=== PATIENT | male | born 1995 | race Caucasian/White ===

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

== ENCOUNTER 2019-02-11 17:31 | Outpatient (CLI) | payer SELFPAY | END 2019-02-11 17:32 | disposition critical access hospital (66) | LOC: EMS 17:31 | PROVIDERS: ATTEND Surgery | DX: M25.512 Pain in left shoulder (principal); M25.562 Pain in left knee; M25.572 Pain in left ankle and joints of left foot; R51 Headache; R07.9 Chest pain, unspecified; R11.0 Nausea; M25.552 Pain in left hip; V03.10XA Pedestrian on foot injured in collision with car, pick-up truck or van in traffic accident, initial encounter; Y93.C9 Activity, other involving computer technology and electronic devices; Y93.01 Activity, walking, marching and hiking; Y92.414 Local residential or business street as the place of occurrence of the external cause | CPT/HCPCS: A0425; A0429 ==

== ENCOUNTER 2019-02-11 17:48 | Emergency (ER) | payer SELFPAY ==
[2019-02-11] MEDS ORDERED: HYDROcod/ACETAM 5/325 MG TABLET PO STA (17:53)
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
[2019-02-11 18:09] VITALS: BP 127/68
== END 2019-02-11 18:08 | disposition left against medical advice (07) ==
LOC: EDUNIT# → EDBD → ED 17:48
DX: S09.90XA Unspecified injury of head, initial encounter (principal); R41.3 Other amnesia; M25.512 Pain in left shoulder; M25.552 Pain in left hip; M25.562 Pain in left knee; V03.90XA Pedestrian on foot injured in collision with car, pick-up truck or van, unspecified whether traffic or nontraffic accident, initial encounter; Y92.410 Unspecified street and highway as the place of occurrence of the external cause; Z53.20 Procedure and treatment not carried out because of patient's decision for unspecified reasons
CPT/HCPCS: 99284

== ENCOUNTER 2022-05-11 19:23 | Emergency (ER) | payer MEDICAID ==
[2022-05-11 19:44] VITALS: BP 121/86
[2022-05-11] MEDS ORDERED: oxyCODONE/ACET 5/325 Prepack 4 PO STA (20:02)
[2022-05-11] MEDS ORDERED: AMOX/CLAV 875 MG/125 MG TABLET PO STA (20:02)
--- NOTE | 2022-05-11 20:06 | ED Physician Documentation ---
PD HPI HEENT - Stated complaint Stated Complaint: TOOTH PX/INJ - Chief complaint Chief Complaint: Heent - History obtained from History obtained from: Patient - Additional information Additional information: 27-year-old gentleman has been dealing with worsening dental pain from a right maxillary molar for the last month. He has some facial swelling and subjective fevers with it. He last saw his dentist about 6 months ago, it was not clear that this was going to be a problem. PD PAST MEDICAL HISTORY - Past Surgical History Past Surgical History: No - Present Medications Home Medications: Ambulatory Orders Medication Instructions Recorded Confirmed Amox/Clav 875/125 [Augmentin] 1 each PO Q12H #20 tablet 05/11/22 Oxycodone HCl/Acetaminophen 1 - 2 each PO Q6H PRN #14 tablet 05/11/22 [Percocet 5-325 mg Tablet] - Allergies Allergies/Adverse Reactions: Allergies Allergy/AdvReac Type Severity Reaction Status Date / Time No Known Drug Allergies Allergy Verified 05/11/22 19:44 - Social History Does the pt smoke?: No Smoking Status: Never smoker Does the pt drink ETOH?: No Does the pt have substance abuse?: No - Immunizations Immunizations are current?: Yes Immunizations: No immun - POLST Patient has POLST: No PD ED PE NORMAL - Vitals Vital signs reviewed: Yes - General General: Alert and oriented X 3, No acute distress - HEENT HEENT: Other (Large cavity in the last maxillary right molar which is tender. No facial swelling or gingival abscess. No trismus.) Results - Vitals Vitals: Vital Signs - 24 hr 05/11/22 19:41 Temperature 36.8 C Heart Rate 83 Respiratory 16 Rate Blood Pressure 121/86 H O2 Saturation 100 Oxygen O2 Source Room air Departure - Departure Disposition: 01 Home, Self Care Clinical Impression: Dental abscess Condition: Good Record reviewed to determine appropriate education?: Yes Instructions: ED Abscess Dental Prescriptions: Amox/Clav 875/125 [Augmentin] 1 each PO Q12H #20 tablet Oxycodone HCl/Acetaminophen [Percocet 5-325 mg Tablet] 1 - 2 each PO Q6H PRN #14 tablet PRN Reason: pain Comments: I sent your prescriptions [facility] to [facility] in [place]. It is very important that you follow-up with a dentist. When it comes to dental problems like yours, the emergency department can only offer a short-term solution to your long-term problem. A couple of low cost options for dental care include: [facility] in [place], calls [phone] for an appointment Or [facility] in [place], call [phone] for an appointment. I am prescribing a short course of narcotic pain medication for you. These are potentially dangerous and addictive medications that should be used carefully. These medications may constipate you. Take an exjx-ela-cdgscrs stool softener (docusate) twice daily with plenty of water while taking these medications. If y ou go 24 hours without a bowel movement, take rdpa-sqw-txqriwc miralax, per package instructions. Do not drink or drive while taking these medications. If you received narcotic or sedating medications while in the emergency department, do not drive for 24 hours. Store this medication in a safe, secure place and out of reach of children. It is a violation of federal law to give or sell this medication to another person or to use in a manner other than prescribed. The ED will not refill narcotic prescriptions, including prescriptions lost or stolen. To dispose of unwanted medications: 1. [facility] at [address] in [place] has a medication drop box. They accept prescription medications (in pill form) Friday through Friday 9:00 a.m. to 5:00 p.m. 2. [facility] accepts prescription medications (in pill form only) for disposal year round. Call for more information. 3. Contact the [facility] for the next [facility] sponsored prescription drug collection event. , [phone], or [phone]; Note that many narcotic pain relievers also contain Tylenol/acetaminophen. Please ensure that your total dose of acetaminophen from all sources does not exceed 3 g (3000 mg) per day.
== END 2022-05-11 20:11 | disposition home or self-care (01) ==
LOC: ED 19:23
DX: K04.7 Periapical abscess without sinus (principal)
CPT/HCPCS: 99282; 99283; A9270

== ENCOUNTER 2022-10-16 16:59 | Emergency (ER) | payer OTHER, MEDICAID ==
[2022-10-16] MEDS ORDERED: ACETAMINOPHEN 500 MG TABLET PO STA (17:11)
[2022-10-16] MEDS ORDERED: ONDANSETRON ODT 4 MG TABLET TL STA (17:11)
[2022-10-16] MEDS ORDERED: IBUPROFEN 800 MG TABLET PO STA (17:12)
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
--- NOTE | 2022-10-16 18:13 | CT Report ---
PROCEDURE: CERVICAL SPINE WO INDICATIONS: head injury/neck pain TECHNIQUE: Noncontrast 3 mm thick sections acquired from the skull base to the T4 level. Sagittal and coronal r eformats were then constructed. For radiation dose reduction, the following was used: automated exp osure control, adjustment of mA and/or kV according to patient size. COMPARISON: Correlation is made with the accompanying head CT. FINDINGS: Image quality: Excellent. Bones: No fractures or dislocations. Visualized superior ribs are intact. Soft tissues: Prevertebral soft tissues are normal in thickness. No paravertebral hematomas. No ap ical pneumothoraces. IMPRESSION: No fractures or dislocations can be seen. Reviewed by: Ulices Mills MD on 10/16/2022 5:12 PM LAZAR[facility] Approved by: Ulices Mills MD on 10/16/2022 5:12 PM LAZAR[facility] Station ID: [id number]
--- NOTE | 2022-10-16 18:14 | CT Report ---
PROCEDURE: HEAD WO INDICATIONS: head injury/pain/vomiting TECHNIQUE: Noncontrast 4.5 mm thick angled axial sections acquired from the foramen magnum to the vertex. For r adiation dose reduction, the following was used: automated exposure control, adjustment of mA and/or kV according to patient size. COMPARISON: Correlation is made with the accompanying cervical spine CT. FINDINGS: Image quality: There is artifact associated with the metallic ear rings. CSF spaces: Basal cisterns are patent. No extra-axial fluid collections. Ventricles are normal in size and shape. Brain: No midline shift. No intracranial masses or hemorrhage. Benjamin-white matter interface is norm al. Skull and face: Calvarium and visualized facial bones are intact, without suspicious lesions. Sinuses: Visualized sinuses and mastoids are clear. IMPRESSION: No intracranial hemorrhage is seen. No significant intracranial abnormality is seen. Negative for a displaced calvarial fracture. Reviewed by: Ulices Mills MD on 10/16/2022 5:13 PM [facility] Approved by: Ulices Mills MD on 10/16/2022 5:13 PM LAZARO Station ID: [id number]
[2022-10-17 10:59] VITALS: BP 128/86; O2SAT 98
== END 2022-10-16 18:05 | disposition home or self-care (01) ==
LOC: ED 16:59
DX: S06.0X0A Concussion without loss of consciousness, initial encounter (principal); Y35.393A Legal intervention involving other blunt objects, suspect injured, initial encounter
CPT/HCPCS: 70450; 72125; 99283; 99284; A9270; Q0162

== ENCOUNTER 2023-07-28 18:13 | Emergency (ER) | payer MEDICAID ==
--- NOTE | 2023-07-28 18:26 | ED Physician Documentation ---
PD HPI UPPER EXT INJURY - Stated complaint Stated Complaint: RT WRIST INJ - Chief complaint Chief Complaint: Trauma Ext - History obtained from History obtained from: Patient - Additonal information Additional information: 28-year-old right-handed gentleman tripped getting off the bus today and landed on an outstretched right wrist and has severe pain to the distal radius/snuffbox area. No other injuries. PD PAST MEDICAL HISTORY - Past Surgical History Past Surgical History: No - Present Medications Home Medications: Ambulatory Orders Medication Instructions Recorded Confirmed No Known Home Medications 07/28/23 07/28/23 - Allergies Allergies/Adverse Reactions: Allergies Allergy/AdvReac Type Severity Reaction Status Date / Time No Known Drug Allergies Allergy Verified 07/28/23 18:20 - Social History Does the pt smoke?: No Smoking Status: Never smoker Does the pt drink ETOH?: No Does the pt have substance abuse?: No - Immunizations Immunizations are current?: Yes Immunizations: No immun - POLST Patient has POLST: No PD ED PE NORMAL - Vitals Vital signs reviewed: Yes - General General: Alert and oriented X 3, No acute distress - Extremities Extremities: Other (Tender over the right snuffbox/distal radius. No ulnar styloid tenderness. He is unable to range the wrist due to pain. He has normal sensation throughout the hand. There is no deformity.) - Neuro Neuro: Alert and oriented X 3, Normal speech Results - Vitals Vitals: Vital Signs - 24 hr 07/28/23 18:15 Temperature 36.2 C L Heart Rate 61 Respiratory 16 Rate Blood Pressure 139/85 H O2 Saturation 97 Oxygen O2 Source Room air - Rads (name of study) Right wrist x-ray with questionable scaphoid fracture Relevant Findings:: Final report received, EMP independent interpretation of test Procedures - Splint (location) - Minor R wrist Splint applied by: Physician Type of splint: Fiberglass, Short arm, Thumb spica Other: Patient tolerated well, No complications, Neurovascular intact PD Medical Decision Making - ED course ED course: He definitely has pain over the snuffbox and questionable x-ray. I offered CT scanning tonight versus splinting and orthopedic follow-up and he opted for the latter. Departure - Departure Disposition: 01 Home, Self Care Clinical Impression: Scaphoid fracture Qualifiers: Encounter type: initial encounter Scaphoid bone location: unspecified portion of scaphoid Fracture type: closed Fracture alignment: nondisplaced Laterality: right Qualified Code(s): S62.001A - Unspecified fracture of navicular [scaphoid] bone of right wrist, initial encounter for closed fracture Condition: Good Record reviewed to determine appropriate education?: Yes Instructions: ED Fx Wrist Navicular Poss Follow-Up: [facility] [Provider Group] Comments: As discussed, I am concerned that you may have broken your scaphoid bone in your wrist which definitely merits follow-up with orthopedics. Keep the splint on and dry and call the orthopedics office tomorrow for an appointment within a week or 2 for reevaluation. Return for new or worsening symptoms. Tylenol and/or ibuprofen as needed for pain. Forms: PCP List, Activity restrictions
[2023-07-28] MEDS: IBUPROFEN 800 MG TABLET PO STA (18:33)
--- NOTE | 2023-07-28 19:04 | XRAY Report ---
PROCEDURE: Wrist 3+V RT INDICATIONS: wrist inj TECHNIQUE: 3 views of the wrist were acquired. COMPARISON: None. FINDINGS: Bones: Subtle linear lucency through the distal pole of the right scaphoid. No definite cortical dis ruption. Remainder of the visualized osseous structures appear intact. Scapholunate interval is maint ained. Soft tissues: No suspicious soft tissue calcifications or masses. Right wrist soft tissue swelling IMPRESSION: Right wrist soft tissue swelling with subtle linear lucency through the distal pole of the right scap hoid without definite cortical disruption. This may represent a prominent nutrient foramen. However, nondisplaced fracture not excluded. Recommend immobilization and repeat imaging in 10-14 days. Reviewed by: Bobby Ferrre MD on 07/28/2023 7:02 PM PDT Approved by: Bobby Ferrer MD on 07/28/2023 7:02 PM PDT Station ID: [id number]
[2023-07-28 19:17] VITALS: BP 133/88; O2SAT 98
== END 2023-07-28 19:16 | disposition home or self-care (01) ==
LOC: ED 18:13
DX: S62.001A Unspecified fracture of navicular [scaphoid] bone of right wrist, initial encounter for closed fracture (principal); W19.XXXA Unspecified fall, initial encounter; Y93.89 Activity, other specified; Y92.811 Bus as the place of occurrence of the external cause
CPT/HCPCS: 29125; 73110; 99283; A9270